=== PATIENT | female | born 1980 | race Hispanic/Latino ===

== ENCOUNTER 2022-05-22 12:51 | Inpatient (IN) | payer OTHER ==
[~2022-05-22] VITALS: Ht 157.5 cm; Wt 78.9 kg
[2022-05-22] MEDS ORDERED: SODIUM CHLORIDE 0.9% 1000ML 1,000 ML IV STA ×2 (13:03→13:11)
[2022-05-22] MEDS ORDERED: INSULIN REGULAR, HUMAN 100 UNIT/1 ML IV STA (13:11)
[2022-05-22] MEDS ORDERED: SODIUM CHLORIDE 0.9% 1000ML 1,000 ML ONE (13:17)
[2022-05-22 13:37] LABS: BASOPHILS # (AUTO) 0.1 (0.0-0.1); BASOPHILS % 0.5 % (0.0-1.0); HEMATOCRIT 60.1 % (34.2-44.1); LYMPHOCYTES # (AUTO) 2.9 (1.0-3.2); LYMPHOCYTES % 16.1 % (18.0-39.1); MEAN CORPUSCULAR HGB CONC 28.3 g/dL (31-35); MEAN CORPUSCULAR VOLUME 102.6 fL (81-99); MONOCYTES # (AUTO) 0.8 (0.2-0.8); MONOCYTES % 4.4 % (4.4-11.3); NEUTROPHILS # (AUTO) 13.6 (2.1-6.9); NEUTROPHILS % 76.5 % (38.7-80.0); PLATELET COUNT 531 x10e3/uL (140-360); RED BLOOD COUNT 5.86 x10e6/uL (3.6-5.1); RED CELL DISTRIBUTION WIDTH 12.9 % (11.7-14.4)
[2022-05-22 13:47] LABS: INR 1.14; PROTHROMBIN TIME 15.6 seconds (11.9-14.5)
[2022-05-22 13:48] LABS: PARTIAL THROMBOPLASTIN TIME 26.5 seconds (23.8-35.5)
[2022-05-22 13:57] LABS: ALANINE AMINOTRANSFERASE 42 IU/L (0-55); ALBUMIN 4.8 g/dL (3.5-5.0); ANION GAP 34.7 mmol/L (8-16); BLOOD UREA NITROGEN 22 mg/dL (7-26); BUN/CREATININE RATIO 13 (6-25); CALCIUM 9.9 mg/dL (8.4-10.2); CHLORIDE 104 mmol/L (98-107); CREATININE, SERUM 1.75 mg/dL (0.57-1.11); MAGNESIUM 2.6 MG/DL (1.3-2.1); POTASSIUM 4.7 mmol/L (3.5-5.1); SODIUM 140 mmol/L (136-145)
[2022-05-22 13:58] LABS: ABG HCO3 2 mmol/L (22-26); ABG PCO2 8 mmHg (35-45); ABG PH 7.01 (7.35-7.45); ABG PO2 167 mmHg (80-105)
[2022-05-22 13:58] LABS: ALKALINE PHOSPHATASE 130 IU/L (40-150); CREATINE KINASE 18 IU/L (29-168); LIPASE 214 U/L (8-78)
[2022-05-22 13:59] LABS: ABG TCO2 < 5
[2022-05-22] MEDS ORDERED: MAGNESIUM SULF 1GRAM/DEXTROSE 100 ML IV PRN (14:00)
[2022-05-22] MEDS ORDERED: ONDANSETRON HCL INJ 2MG/ML 2ML 2 MG/ML VIAL IV PRN (14:00)
[2022-05-22 14:10] LABS: CARBON DIOXIDE 6 mmol/L (22-29)
[2022-05-22 14:11] LABS: GLUCOSE 414 mg/dL (74-118)
[2022-05-22 14:15] LABS: B-TYPE NATRIURETIC PEPTIDE2 < 12.0 pg/mL (0-100)
[2022-05-22] MEDS: DEXTROSE 5%/0.45% SOD CHL 1,000 ML IV SCH ×3 (14:15→22:07)
[2022-05-22] MEDS: SODIUM CHLORIDE 0.9% 1000ML 1,000 ML IV SCH ×3 (14:15→22:00)
[2022-05-22] MEDS: INSULIN REGULAR, HUMAN 3ML VL 100 UNIT in SODIUM CHLORIDE 0.9% 100 ML IV SCH ×4 (14:15→22:06)
[2022-05-22 14:32] LABS: CLARITY,URINE SL CLOUDY (CLEAR); COLOR,URINE YELLOW (YELLOW); KETONES,URINE 2+ (NEGATIVE); LEUKOCYTE ESTERASE ,URINE NEGATIVE (NEGATIVE); NITRITE,URINE NEGATIVE (NEGATIVE); PROTEIN,URINE DIPSTICK >=300 (NEGATIVE)
[2022-05-22 14:33] LABS: URINE UROBILINOGEN 0.2 mg/dL (0.2 - 1)
[2022-05-22 14:40] LABS: BACTERIA,URINE MODERATE /HPF; EPITHELIAL CELLS,URINE FEW /LPF; RBC,URINE 0-5 /HPF (0-5)
[2022-05-22] MEDS ORDERED: ACETAMINOPHEN 325 MG TAB PO PRN (15:30)
[2022-05-22 17:21] VITALS: BP 166/78
[2022-05-22 19:00] VITALS: BP 151/76
[2022-05-22 19:10] LABS: ANION GAP 24.2 mmol/L (8-16); CALCIUM 8.3 mg/dL (8.4-10.2); CREATININE, SERUM 1.08 mg/dL (0.57-1.11); POTASSIUM 4.2 mmol/L (3.5-5.1)
[2022-05-22 19:31] LABS: CREATINE KINASE MB 0.6 ng/mL (0-5.0)
[2022-05-22 20:00] VITALS: BP 146/75
[2022-05-22] MEDS: CLONAZEPAM 1 MG TAB PO PRN (20:16)
[2022-05-22 21:00] VITALS: BP 133/73
[2022-05-22] MEDS: FAMOTIDINE 20 MG/2 ML VIAL IV SCH (21:43)
[2022-05-22 22:00] VITALS: BP 130/72
[2022-05-22 23:16] VITALS: BP 141/74
[2022-05-22 23:45] LABS: ANION GAP 18.2 mmol/L (8-16); CALCIUM 8.3 mg/dL (8.4-10.2); CREATININE, SERUM 0.92 mg/dL (0.57-1.11); MAGNESIUM 1.8 MG/DL (1.3-2.1)
[2022-05-23] VITALS (21 sets, daily range): BP systolic 81–147; BP diastolic 46–80
[2022-05-23 00:15] LABS: POTASSIUM 3.2 mmol/L (3.5-5.1)
[2022-05-23] MEDS: POTASSIUM CHLORIDE 20MEQ/100ML 100 ML INJ PRN ×2 (00:32→05:07)
[2022-05-23] MEDS ORDERED: POTASSIUM CHLORIDE 20MEQ/100ML 100 ML ONE ×2 (00:41→05:19)
[2022-05-23] MEDS: SODIUM CHLORIDE 0.9% 1000ML 1,000 ML IV SCH ×6 (02:00→20:04)
[2022-05-23 02:06] LABS: CREATINE KINASE MB 0.7 ng/mL (0-5.0)
[2022-05-23] MEDS: DEXTROSE 5%/0.45% SOD CHL 1,000 ML IV SCH ×5 (03:07→21:59)
[2022-05-23 03:50] LABS: ANION GAP 16.2 mmol/L (8-16); CALCIUM 8.6 mg/dL (8.4-10.2); CREATININE, SERUM 0.93 mg/dL (0.57-1.11); MAGNESIUM 1.9 MG/DL (1.3-2.1); POTASSIUM 3.2 mmol/L (3.5-5.1)
[2022-05-23 05:57] LABS: BASOPHILS # (AUTO) 0.1 (0.0-0.1); BASOPHILS % 0.4 % (0.0-1.0); HEMATOCRIT 45.4 % (34.2-44.1); LYMPHOCYTES # (AUTO) 2.2 (1.0-3.2); LYMPHOCYTES % 17.3 % (18.0-39.1); MEAN CORPUSCULAR HEMOGLOBIN 28.7 pg (28-32); MEAN CORPUSCULAR HGB CONC 30.2 g/dL (31-35); MEAN CORPUSCULAR VOLUME 95.2 fL (81-99); MONOCYTES # (AUTO) 0.7 (0.2-0.8); MONOCYTES % 5.7 % (4.4-11.3); NEUTROPHILS # (AUTO) 9.6 (2.1-6.9); NEUTROPHILS % 75.9 % (38.7-80.0); RED BLOOD COUNT 4.77 x10e6/uL (3.6-5.1); RED CELL DISTRIBUTION WIDTH 13.2 % (11.7-14.4)
[2022-05-23 05:58] LABS: CREATINE KINASE MB 1.1 ng/mL (0-5.0)
[2022-05-23 06:21] LABS: ALBUMIN 3.5 g/dL (3.5-5.0); ANION GAP 17.2 mmol/L (8-16); CALCIUM 8.5 mg/dL (8.4-10.2); CREATININE, SERUM 0.99 mg/dL (0.57-1.11); HEMOGLOBIN 13.7 g/dL (12.0-16.0); MAGNESIUM 1.8 MG/DL (1.3-2.1); PLATELET COUNT 280 x10e3/uL (140-360); POTASSIUM 3.2 mmol/L (3.5-5.1)
[2022-05-23] MEDS: FAMOTIDINE 20 MG/2 ML VIAL IV SCH ×3 (08:29→20:02)
[2022-05-23] MEDS: INSULIN REGULAR, HUMAN 3ML VL 100 UNIT in SODIUM CHLORIDE 0.9% 100 ML IV SCH ×2 (10:15)
[2022-05-23 11:55] LABS: ANION GAP 13.1 mmol/L (8-16); CALCIUM 8.8 mg/dL (8.4-10.2); CREATININE, SERUM 0.92 mg/dL (0.57-1.11); POTASSIUM 3.1 mmol/L (3.5-5.1)
[2022-05-23] MEDS ORDERED: POTASSIUM CHLORIDE 20MEQ/100ML 200 ML IV PRN (12:15)
[2022-05-23] MEDS: POTASSIUM CHLORIDE 20MEQ/100ML 100 ML IV PRN (12:23)
[2022-05-23] MEDS ORDERED: MAGNESIUM SULFATE 2GM/50ML 50 ML IV PRN (15:30)
[2022-05-23 15:44] LABS: CALCIUM 8.4 mg/dL (8.4-10.2); CREATININE, SERUM 0.84 mg/dL (0.57-1.11); MAGNESIUM 1.9 MG/DL (1.3-2.1)
[2022-05-23] MEDS: POTASSIUM CHLORIDE 20MEQ/100ML 200 ML IV PRN (15:55)
[2022-05-23] MEDS ORDERED: MAGNESIUM SULF 1GRAM/DEXTROSE 100 ML IV PRN (16:45)
[2022-05-23 19:42] LABS: ANION GAP 10.9 mmol/L (8-16); CALCIUM 8.1 mg/dL (8.4-10.2); CREATININE, SERUM 0.81 mg/dL (0.57-1.11); MAGNESIUM 1.8 MG/DL (1.3-2.1)
[2022-05-23 19:45] LABS: POTASSIUM 2.9 mmol/L (3.5-5.1)
[2022-05-23] MEDS: CLONAZEPAM 1 MG TAB PO PRN (20:03)
[2022-05-23 23:55] LABS: ANION GAP 10.9 mmol/L (8-16); BLOOD UREA NITROGEN < 5 mg/dL (7-26); CARBON DIOXIDE 15 mmol/L (22-29); CHLORIDE 118 mmol/L (98-107); CREATININE, SERUM 0.77 mg/dL (0.57-1.11); GLUCOSE 85 mg/dL (74-118); SODIUM 141 mmol/L (136-145)
[2022-05-24] VITALS (20 sets, daily range): BP systolic 82–148; BP diastolic 61–103
[2022-05-24 00:06] LABS: BUN/CREATININE RATIO 6 (6-25); POTASSIUM 2.9 mmol/L (3.5-5.1)
[2022-05-24] MEDS: DEXTROSE 5%/0.45% SOD CHL 1,000 ML IV SCH ×3 (00:25→09:00)
[2022-05-24] MEDS: SODIUM CHLORIDE 0.9% 1000ML 1,000 ML IV SCH ×2 (02:00→06:00)
[2022-05-24 04:43] LABS: ANION GAP 12.9 mmol/L (8-16); BLOOD UREA NITROGEN < 5 mg/dL (7-26); CALCIUM 8.5 mg/dL (8.4-10.2); CARBON DIOXIDE 14 mmol/L (22-29); CHLORIDE 118 mmol/L (98-107); CREATININE, SERUM 0.77 mg/dL (0.57-1.11); GLUCOSE 143 mg/dL (74-118); SODIUM 142 mmol/L (136-145)
[2022-05-24 04:50] LABS: BUN/CREATININE RATIO 6 (6-25); POTASSIUM 2.9 mmol/L (3.5-5.1)
[2022-05-24] MEDS: POTASSIUM CHLORIDE 20MEQ/100ML 200 ML IV PRN ×2 (05:11→09:40)
[2022-05-24] MEDS ORDERED: DEXTROSE 50% SYRINGE 50 ML IV PRN (07:45)
[2022-05-24] MEDS ORDERED: INSULIN REGULAR, HUMAN 3ML VL 100 UNIT in SODIUM CHLORIDE 0.9% 99 ML IV SCH ×2 (07:45)
[2022-05-24 08:22] LABS: ANION GAP 12.9 mmol/L (8-16); BLOOD UREA NITROGEN < 5 mg/dL (7-26); CALCIUM 8.2 mg/dL (8.4-10.2); CARBON DIOXIDE 15 mmol/L (22-29); CHLORIDE 115 mmol/L (98-107); CREATININE, SERUM 0.73 mg/dL (0.57-1.11); GLUCOSE 171 mg/dL (74-118); MAGNESIUM 1.9 MG/DL (1.3-2.1); SODIUM 140 mmol/L (136-145)
[2022-05-24 08:24] LABS: BUN/CREATININE RATIO 7 (6-25); POTASSIUM 2.9 mmol/L (3.5-5.1)
[2022-05-24] MEDS: INSULIN REGULAR, HUMAN 3ML VL 100 UNIT in SODIUM CHLORIDE 0.9% 100 ML IV SCH ×2 (08:54)
[2022-05-24] MEDS ORDERED: SODIUM CHLORIDE 0.9% 1000ML 1,000 ML ONE (08:56)
[2022-05-24] MEDS: FAMOTIDINE 20 MG/2 ML VIAL IV SCH ×2 (09:40→21:25)
[2022-05-24 13:00] LABS: ANION GAP 14.6 mmol/L (8-16); BLOOD UREA NITROGEN < 5 mg/dL (7-26); CALCIUM 8.1 mg/dL (8.4-10.2); CARBON DIOXIDE 16 mmol/L (22-29); CHLORIDE 113 mmol/L (98-107); CREATININE, SERUM 0.62 mg/dL (0.57-1.11); GLUCOSE 181 mg/dL (74-118); POTASSIUM 3.6 mmol/L (3.5-5.1); SODIUM 140 mmol/L (136-145)
[2022-05-24 13:02] LABS: BUN/CREATININE RATIO 8 (6-25)
[2022-05-24 16:39] LABS: ANION GAP 16.2 mmol/L (8-16); BLOOD UREA NITROGEN < 5 mg/dL (7-26); CALCIUM 8.3 mg/dL (8.4-10.2); CARBON DIOXIDE 17 mmol/L (22-29); CHLORIDE 112 mmol/L (98-107); CREATININE, SERUM 0.65 mg/dL (0.57-1.11); GLUCOSE 151 mg/dL (74-118); POTASSIUM 3.2 mmol/L (3.5-5.1); SODIUM 142 mmol/L (136-145)
[2022-05-24 16:40] LABS: BUN/CREATININE RATIO 8 (6-25)
[2022-05-24] MEDS: POTASSIUM CHLORIDE 20MEQ/100ML 100 ML INJ PRN (17:05)
[2022-05-24 20:35] LABS: ANION GAP 17.4 mmol/L (8-16); BLOOD UREA NITROGEN < 5 mg/dL (7-26); CALCIUM 8.3 mg/dL (8.4-10.2); CARBON DIOXIDE 18 mmol/L (22-29); CHLORIDE 109 mmol/L (98-107); CREATININE, SERUM 0.68 mg/dL (0.57-1.11); GLUCOSE 161 mg/dL (74-118); POTASSIUM 3.4 mmol/L (3.5-5.1); SODIUM 141 mmol/L (136-145)
[2022-05-24 20:39] LABS: BUN/CREATININE RATIO 7 (6-25)
[2022-05-24] MEDS: POTASSIUM CHLORIDE 20MEQ/100ML 100 ML IV PRN (21:27)
[2022-05-24] MEDS: CLONAZEPAM 1 MG TAB PO PRN (21:55)
[2022-05-25] VITALS (26 sets, daily range): BP systolic 109–149; BP diastolic 66–123
[2022-05-25 00:42] LABS: ANION GAP 14.3 mmol/L (8-16); CALCIUM 8.4 mg/dL (8.4-10.2); CREATININE, SERUM 0.62 mg/dL (0.57-1.11); MAGNESIUM 1.8 MG/DL (1.3-2.1); POTASSIUM 3.3 mmol/L (3.5-5.1)
[2022-05-25] MEDS: POTASSIUM CHLORIDE 20MEQ/100ML 100 ML IV PRN ×2 (01:04→04:50)
[2022-05-25 04:34] LABS: ANION GAP 13.4 mmol/L (8-16); CALCIUM 8.1 mg/dL (8.4-10.2); CREATININE, SERUM 0.57 mg/dL (0.57-1.11); MAGNESIUM 1.9 MG/DL (1.3-2.1); POTASSIUM 3.4 mmol/L (3.5-5.1)
[2022-05-25] MEDS: DEXTROSE 5%/0.45% SOD CHL 1,000 ML IV SCH (04:34)
[2022-05-25] MEDS: ONDANSETRON HCL INJ 2MG/ML 2ML 2 MG/ML VIAL IV PRN ×2 (06:52→16:50)
[2022-05-25] MEDS: FAMOTIDINE 20 MG/2 ML VIAL IV SCH ×2 (08:24→21:31)
[2022-05-25] MEDS ORDERED: NYSTATIN/TRIAMCINOLONE 15 GM CR TOP PRN (18:15)
[2022-05-25 18:50] LABS: ALBUMIN 2.9 g/dL (3.5-5.0); ALBUMIN/GLOBULIN RATIO 0.9 (0.8-2.0); ANION GAP 16.7 mmol/L (8-16); CREATININE, SERUM 0.84 mg/dL (0.57-1.11); POTASSIUM 3.7 mmol/L (3.5-5.1)
[2022-05-25] MEDS ORDERED: DIPHENHYDRAMINE HCL 25 MG CAP PO ONE (19:00)
[2022-05-25 19:13] LABS: MAGNESIUM 1.7 MG/DL (1.3-2.1); PHOSPHORUS 1.8 MG/DL (2.3-4.7)
[2022-05-26] VITALS (19 sets, daily range): BP systolic 105–141; BP diastolic 51–100
[2022-05-26] MEDS: DEXTROSE 5%/0.45% SOD CHL 1,000 ML IV SCH (03:52)
[2022-05-26 06:35] LABS: BASOPHILS % 0.4 % (0.0-1.0); EOSINOPHILS # (AUTO) 0.1 (0.0-0.4); EOSINOPHILS % 1.7 % (0.0-6.0); HEMATOCRIT 44.3 % (34.2-44.1); HEMOGLOBIN 13.7 g/dL (12.0-16.0); LYMPHOCYTES # (AUTO) 2.9 (1.0-3.2); LYMPHOCYTES % 42.1 % (18.0-39.1); MEAN CORPUSCULAR HEMOGLOBIN 28.7 pg (28-32); MEAN CORPUSCULAR HGB CONC 30.9 g/dL (31-35); MEAN CORPUSCULAR VOLUME 92.9 fL (81-99); MONOCYTES # (AUTO) 0.4 (0.2-0.8); MONOCYTES % 5.8 % (4.4-11.3); NEUTROPHILS # (AUTO) 3.4 (2.1-6.9); NEUTROPHILS % 49.7 % (38.7-80.0); PLATELET COUNT 295 x10e3/uL (140-360); RED BLOOD COUNT 4.77 x10e6/uL (3.6-5.1); RED CELL DISTRIBUTION WIDTH 13.2 % (11.7-14.4)
[2022-05-26 07:02] LABS: ANION GAP 15.5 mmol/L (8-16); CREATININE, SERUM 0.6 mg/dL (0.57-1.11); POTASSIUM 3.5 mmol/L (3.5-5.1)
[2022-05-26 08:30] LABS: ALBUMIN 3.4 g/dL (3.5-5.0)
[2022-05-26 08:37] LABS: ALBUMIN/GLOBULIN RATIO 0.9 (0.8-2.0)
[2022-05-26] MEDS: FAMOTIDINE 20 MG/2 ML VIAL IV SCH ×2 (08:51→20:59)
[2022-05-26] MEDS ORDERED: INSULIN GLARGINE 100 UNITS/ML VIAL SQ ONE (10:15)
[2022-05-26] MEDS ORDERED: DEXTROSE 50% SYRINGE 50 ML IV PRN (10:15)
[2022-05-26] MEDS: INSULIN REGULAR, HUMAN 100 UNIT/1 ML SQ SCH ×3 (11:59→21:06)
[2022-05-26] MEDS ORDERED: POLYETHYLENE GLYCOL 3350 17 GM PACK PO ONE (15:30)
[2022-05-26] MEDS: CLONAZEPAM 1 MG TAB PO PRN (20:58)
[2022-05-27] VITALS: BP 139/84
[2022-05-27 04:00] VITALS: BP 130/87
[2022-05-27 07:48] VITALS: BP 147/90
[2022-05-27] MEDS: INSULIN REGULAR, HUMAN 100 UNIT/1 ML SQ SCH ×2 (07:48→11:08)
[2022-05-27] MEDS: FAMOTIDINE 20 MG/2 ML VIAL IV SCH (08:57)
[2022-05-27 11:15] VITALS: BP 142/100
[2022-05-27] MEDS ORDERED: Nystatin/Triamcinolone TOP (11:26)
[2022-05-27] MEDS ORDERED: HUMULIN R100 UNIT/2 SQ (11:26)
== END 2022-05-27 12:15 | disposition home or self-care (01) | DRG 637 ==
LOC: ER 12:59 → ERHOLD 14:01 → ICU 17:00 → MED/SURG 05-26 18:16
PROVIDERS: ADMIT Internal Medicine; ATTEND Internal Medicine
DX: E11.10 Type 2 diabetes mellitus with ketoacidosis without coma (principal); K85.90 Acute pancreatitis without necrosis or infection, unspecified; N17.9 Acute kidney failure, unspecified; N39.0 Urinary tract infection, site not specified; Z79.4 Long term (current) use of insulin; E86.0 Dehydration; E87.8 Other disorders of electrolyte and fluid balance, not elsewhere classified; Z20.822 Contact with and (suspected) exposure to COVID-19; E87.6 Hypokalemia
CPT/HCPCS: 36415; 36569; 36600; 71045; 80048; 80053; 81001; 82550; 82553; 82805; 82948; 83605; 83690; 83735; 83880; 84100; 84484; 84702; 85025; 85379; 85610; 85730; 87040; 87086; 93005; 94799; 99284; J0696; J1815; J1817; J2405; J3475; J3480; J7030; J7050